=== PATIENT | male | born 1980 ===

== ENCOUNTER 2016-08-13 14:43 | Emergency (ER) | payer OTHER ==
[2016-08-13] MEDS ORDERED: Dexamethasone 4 mg/1 ml IM STA (15:51)
[2016-08-13] MEDS ORDERED: Dexamethasone 4 mg/1 ml ONE (16:01)
--- NOTE | 2016-08-13 16:18 | RAD ---
PROCEDURE: Radiographs of the Lumbar Spine. HISTORY: low back pain No antecedent history of trauma provided. COMPARISON: No prior. FINDINGS: BONES: Normal alignment. No listhesis. No fracture. DISC SPACES: Unremarkable. OTHER FINDINGS: None. IMPRESSION: Unremarkable radiographs of the lumbar spine.
--- NOTE | 2016-08-13 16:40 | C.PDOC ---
History Of Present Illness 36 yr old male presents to the ER with complaints of back pain for the past 2 months. Patient states he has been seen by his PMD who gave him medication which is not helping. Patient states the pain is worse with movement. Patient denies direct trauma, fall, injury, fever, chest pain, SOB, nausea, vomiting, abdominal pain, diarrhea, dysuria, hematuria, incontinence, weakness or numbness. Time Seen by Provider: 08/13/16 15:04 Chief Complaint (Nursing): Back Pain History Per: Patient History/Exam Limitations: no limitations Onset/Duration Of Symptoms: Persistent (2 months) Past Medical History Reviewed: Historical Data, Nursing Documentation, Vital Signs Vital Signs: Last Vital Signs Temp 98.2 F 08/13/16 17:39 Pulse 76 08/13/16 17:39 Resp 18 08/13/16 17:39 BP 102/88 08/13/16 17:39 Pulse Ox 97 08/13/16 17:39 Family History: States: No Known Family Hx - Social History Hx Alcohol Use: No Hx Substance Use: No - Immunization History Hx Tetanus Toxoid Vaccination: No Hx Influenza Vaccination: No Hx Pneumococcal Vaccination: No Review Of Systems Except As Marked, All Systems Reviewed And Found Negative. Constitutional: Negative for: Fever Cardiovascular: Negative for: Chest Pain Respiratory: Negative for: Shortness of Breath Gastrointestinal: Negative for: Nausea, Vomiting, Abdominal Pain, Diarrhea Genitourinary: Negative for: Dysuria, Incontinence, Hematuria Musculoskeletal: Positive for: Back Pain Neurological: Negative for: Weakness, Numbness Physical Exam - Physical Exam Appears: Non-toxic, No Acute Distress Skin: Warm, Dry, No Rash Head: Atraumatic, Normacephalic Eye(s): bilateral: Normal Inspection Oral Mucosa: Moist Chest: Symmetrical, No Tenderness Cardiovascular: Rhythm Regular, No Murmur Respiratory: Normal Breath Sounds, No Rales, No Rhonchi, No Stridor, No Wheezing Gastrointestinal/Abdominal: Normal Exam, Soft, No Tenderness, No Guarding, No Rebound Back: No CVA Tenderness, Other ((+) Diffuse lumbar tenderness. ) Extremity: Normal ROM, No Swelling Neurological/Psych: Oriented x3, Normal Speech, Normal Motor Gait: Steady ED Course And Treatment O2 Sat by Pulse Oximetry: 100 (on RA) Pulse Ox Interpretation: Normal - Other Rad X-Ray - LS Spine X-Ray: Viewed By Me, Read By Radiologist Interpretation: PROCEDURE: Radiographs of the Lumbar Spine. HISTORY: low back pain. No antecedent history of trauma provided. COMPARISON: No prior. FINDINGS: BONES: Normal alignment. No listhesis. No fracture. DISC SPACES: Unremarkable. OTHER FINDINGS: None. IMPRESSION: Unremarkable radiographs of the lumbar spine. Medical Decision Making Medical Decision Making: PLAN: * X-Ray - LS Spine * Flexeril PO * Toradol IM * Decadron IM On re-exam, the patient reports improvement of symptoms. Lungs remain CTA, heart is RRR, abdomen is soft, non-tender and tolerating PO well. Ambulatory in the ED with steady gait. Follow up with the medical doctor within 1-2 days without fail, Return if worsened, Disposition - Disposition Referrals: [facility] [Outside] Disposition: HOME/ ROUTINE Disposition Time: 17:00 Condition: GOOD Additional Instructions: Follow up with the medical doctor within 1-2 days without fail, Return if worsened, Prescriptions: Cyclobenzaprine [Flexeril] 5 mg PO TID #21 tab Lidocaine 5% [Lidoderm] 1 each TP DAILY #10 patch Naproxen [Naprosyn] 500 mg PO BID #20 tab Instructions: Lumbar Radiculopathy (ED) Forms: Work Excuse - Clinical Impression Clinical Impression: Lumbar radiculopathy - PA / EVENTS DIRECTOR / Resident Statement MD/DO has reviewed & agrees with the documentation as recorded. - Scribe Statement The provider has reviewed the documentation as recorded by the Scribe Angelica Sullivan All medical record entries made by the Scribe were at my direction and personally dictated by me. I have reviewed the chart and agree that the record accurately reflects my personal performance of the history, physical exam, medical decision making, and the department course for this patient. I have also personally directed, reviewed, and agree with the discharge instructions and disposition.
[2016-08-13 17:40] VITALS: BP 102/88; PULSE 76; RESP 18; TEMP 98.2
[2016-08-13 23:53] VITALS: O2SAT 100
== END 2016-08-13 17:40 | disposition home or self-care (01) ==
LOC: C.ER 14:43
DX: M54.16 Radiculopathy, lumbar region (principal)
CPT/HCPCS: 72100; 96372; 99284; J1100; J1885